=== PATIENT | male | born 1975 | race Two or more races ===

== ENCOUNTER 2019-11-18 20:03 | Emergency (ER) | payer MEDICAID ==
[~2019-11-18] VITALS: Ht 170.2 cm; Wt 70.3 kg
[2019-11-18 20:30] VITALS: BP 123/79
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
--- NOTE | 2019-11-18 20:49 | NUR ---
ED Nurse Note: ERMD bedside for lac repair.
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
[2019-11-18] MEDS ORDERED: AUGMENTIN 875-1 EAC1 ORAL (21:06)
[2019-11-18] MEDS ORDERED: NORCO 5-325 TA1 EAC1 ORAL (21:06)
[2019-11-18] MEDS ORDERED: Augmentin 875mg Tab ORAL ONE (21:15)
[2019-11-18 21:20] VITALS: BP 121/74
--- NOTE | 2019-11-18 21:20 | NUR ---
ER DISCHARGE NOTE: Patient is cleared to be discharged per ERMD, pt is aox4, on room air, with stable vital signs. pt was given dc and prescription instructions, pt was able to verbalize understanding, pt id band removed. pt is able to ambulate with steady gait. pt took all belongings.
== END 2019-11-18 21:20 | disposition home or self-care (01) ==
LOC: EMR 20:43
DX: S01.312A Laceration without foreign body of left ear, initial encounter (principal); Y04.1XXA Assault by human bite, initial encounter; Y92.9 Unspecified place or not applicable
CPT/HCPCS: 12013; Z7502; 99283